=== PATIENT | female | born 1965 | race African-American/Black ===

== ENCOUNTER 2017-07-10 11:45 | Emergency (ER) | payer OTHER ==
[~2017-07-10] VITALS: Ht 160 cm; Wt 92.1 kg
[2017-07-10 12:28] VITALS: BP 149/84
[2017-07-10] MEDS ORDERED: Ketorolac 30mg Inj IM ONE (12:30)
[2017-07-10] MEDS ORDERED: Cyclobenzaprine 10mg Tab ORAL ONE (12:30)
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
[2017-07-10] MEDS ORDERED: ROBAXIN-750750 MG PO (13:33)
[2017-07-10] MEDS ORDERED: IBUPROFEN600 MG ORAL (13:33)
[2017-07-10 13:44] VITALS: BP 148/92
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
== END 2017-07-10 13:47 | disposition home or self-care (01) ==
LOC: EMR 12:27
DX: S16.1XXA Strain of muscle, fascia and tendon at neck level, initial encounter (principal); S39.012A Strain of muscle, fascia and tendon of lower back, initial encounter; V43.52XA Car driver injured in collision with other type car in traffic accident, initial encounter; Y92.410 Unspecified street and highway as the place of occurrence of the external cause; I10 Essential (primary) hypertension; E11.9 Type 2 diabetes mellitus without complications; M47.816 Spondylosis without myelopathy or radiculopathy, lumbar region
CPT/HCPCS: 72131; 96372; 99284; J1885